=== PATIENT | female | born 1995 | race Caucasian/White ===

== ENCOUNTER → 2023-06-12 10:18 | Outpatient (REF) | payer OTHER, SELFPAY | LOC: PNTC 10:18 | PROVIDERS: ATTENDING PHYSICIAN Obstetrics & Gynecology | DX: O99.210 Obesity complicating pregnancy, unspecified trimester (principal) | CPT/HCPCS: 76805 ==

== ENCOUNTER → 2023-07-22 10:21 | Outpatient (REF) | payer OTHER, SELFPAY | LOC: PNTC 10:21 | PROVIDERS: ATTENDING PHYSICIAN Obstetrics & Gynecology | DX: O99.210 Obesity complicating pregnancy, unspecified trimester (principal) | CPT/HCPCS: 76811 ==

== ENCOUNTER → 2023-08-20 09:43 | Outpatient (REF) | payer OTHER, SELFPAY | LOC: PNTC 09:43 | PROVIDERS: ATTENDING PHYSICIAN Obstetrics & Gynecology | DX: O99.210 Obesity complicating pregnancy, unspecified trimester (principal); O43.119 Circumvallate placenta, unspecified trimester | CPT/HCPCS: 76816 ==

== ENCOUNTER → 2023-09-17 09:50 | Outpatient (REF) | payer OTHER, SELFPAY | LOC: PNTC 09:50 | PROVIDERS: ATTENDING PHYSICIAN Obstetrics & Gynecology | DX: O99.210 Obesity complicating pregnancy, unspecified trimester (principal); O43.119 Circumvallate placenta, unspecified trimester | CPT/HCPCS: 76816 ==

== ENCOUNTER → 2023-10-22 09:53 | Outpatient (REF) | payer OTHER, SELFPAY | LOC: PNTC 09:53 | PROVIDERS: ATTENDING PHYSICIAN Obstetrics & Gynecology | DX: O99.210 Obesity complicating pregnancy, unspecified trimester (principal); O43.119 Circumvallate placenta, unspecified trimester | CPT/HCPCS: 76816 ==

== ENCOUNTER → 2023-10-28 11:23 | Outpatient (REF) | payer OTHER, SELFPAY ==
--- NOTE | 2023-10-28 09:53 | PN.DIAED06 ---
Meal Plan - Gestational
- Breakfast
Gestational Diabetes Meal Plan Name: 1800 calories
Breakfast - Total Carbohydrate (grams): 30
Breakfast - Starch Carbohydrate: 1
Breakfast - Fruit Carbohydrate: 0
Breakfast - Milk Carbohydrate: 1
Breakfast - Nonstarchy Vegetables: Yes
Breakfast - Meat/Protein: 1
Breakfast - Fat: 2
- Morning Snack
Morning Snack - Total Carbohydrate (grams): 30
Morning Snack - Starch Carbohydrate: 1
Morning Snack - Fruit Carbohydrate: 0
Morning Snack - Milk Carbohydrate: 1
Morning Snack - Nonstarchy Vegetables: Yes
Morning Snack - Meat/Protein: 0.5
Morning Snack - Fat: 0
- Lunch
Lunch - Total Carbohydrate (grams): 45
Lunch - Starch Carbohydrate: 2
Lunch - Fruit Carbohydrate: 1
Lunch - Milk Carbohydrate: 0
Lunch - Nonstarchy Vegetables: Yes
Lunch - Meat/Protein: 2
Lunch - Fat: 1
- Afternoon Snack
Afternoon Snack - Total Carbohydrate (grams): 30
Afternoon Snack - Starch Carbohydrate: 1
Afternoon Snack - Fruit Carbohydrate: 1
Afternoon Snack - Milk Carbohydrate: 0
Afternoon Snack - Nonstarchy Vegetables: Yes
Afternoon Snack - Meat/Protein: 1
Afternoon Snack - Fat: 0
- Dinner
Dinner - Total Carbohydrate (grams): 45
Dinner - Starch Carbohydrate: 2
Dinner - Fruit Carbohydrate: 0
Dinner - Milk Carbohydrate: 1
Dinner - Nonstarchy Vegetables: Yes
Dinner - Meat/Protein: 2
Dinner - Fat: 2
- Evening Snack
Evening Snack - Total Carbohydrate (grams): 30
Evening Snack - Starch Carbohydrate: 1
Evening Snack - Fruit Carbohydrate: 0
Evening Snack - Milk Carbohydrate: 1
Evening Snack - Nonstarchy Vegetables: Yes
Evening Snack - Meat/Protein: 1
Evening Snack - Fat: 1
--- NOTE | 2023-10-28 12:26 | PN.DIAED02 ---
Referral
DSME Class Series Code: GDM
Referred For: Gestational Diabetes Self-Management Training, Self-Blood Glucose Monitoring
PHI Release Authorization Form Signed: Yes
Demographic
(1) Gestational diabetes mellitus in , unspecified control
Status: Acute
Qualifiers:
Gestational diabetes mellitus control: diet-controlled
Code(s): O24.419 - Gestational diabetes mellitus in , unspecified control
(2) Gestational diabetes mellitus in , unspecified control
Status: Acute Code(s): O24.419 - Gestational diabetes mellitus in , unspecified control
Self-Care
- Tobacco Usage
Do you now, or have you ever smoked?: Never smoked
- Alcohol & Drugs Usage
Drinks Alcohol: No
Uses Recreational Drugs: No
Care Plan
- Education Needs
Patient Education Needs: Nutritional management, Preconception care//gestational diabetes management
Recommended Diabetes Training Program based on assessment: Gestational Diabetes Management
- Plan of Care
Plan of Care:
Met with Ms. Salazar today, , currently at 34 weeks of gestation, here today for medical nutrition therapy.
Explained glucose metabolism in body and what occurs during to cause increase blood sugar. Discussed importance of keeping BS well controlled to avoid complications to the baby during and after (macrosomia, hypoglycemia). Explained
to Nayely that she is at increased risk of developing T2DM in the future. Nayely reports that she has a glucose monitor- [employer] Next at home and has been monitoring her blood sugars 2 hrs after each meal since dx of GDM. Reviewed proper testing
technique, testing sites and testing pattern. She is aware to test FBS and 2 hr pp each meal. Expected results for FBS <95 mg/dl and 2 hr pp <120 mg/dl.
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 Explained high carbohydrate diet and macronutrients and the effect each has on blood sugar. Provided with 1800 birdie GDM meal plan. She was educated on how to
read a nutritional fact label and look at total CHO in relation to serving size. No fruit or fruit juice until noontime. Provided with handout on snacks as well as 'Choose Your Foods' booklet. A Log sheet was provided for her to record results, she
will send her 5 day meal log with all her FBG and 2hr Post prandial glucose numbers to this office for review. In addition, she will send all her glucose readings to Siobhan at [facility] every Friday. She was encouraged to keep a regular
activity schedule and will reach out should she require insulin.
== END ==
LOC: DES 11:23
PROVIDERS: ATTENDING PHYSICIAN Obstetrics & Gynecology; FAMILY PHYSICIAN Family Medicine
DX: O24.419 Gestational diabetes mellitus in pregnancy, unspecified control (principal)
CPT/HCPCS: 99078

== ENCOUNTER 2023-11-20 07:22 | Inpatient (IN) | payer OTHER, SELFPAY ==
[2023-11-20 07:44] VITALS: BP 134/95; BMI 35.4
[2023-11-20] MEDS: LR 1000 IV (08:15)
[2023-11-20 08:35] LABS: % Basophils 0.2 % (0-2); % Eosinophils 1.2 % (0-6); % Immature Granulocytes 0.2 % (0-0.5); % Monocytes 7.1 % (1.7-9.3); % Neutrophils 73.3 % (42.2-75.2); Absolute Eosinophils 0.1 10^3/uL (0-0.7); Absolute Lymphocytes 1.5 10^3/uL (1.2-3.4); Absolute Monocytes 0.6 10^3/uL (0.1-0.6); Absolute Neutrophils 6.2 10^3/uL (1.4-6.5); Hematocrit 37.8 % (37.0-47.0); Hemoglobin 13.3 g/dL (12.0-16.0); Mean Corp Hgb Conc. 35.2 g/dL (33.0-37.0); Mean Corpuscular Hgb 30.4 pg (27.0-31.0); Mean Corpuscular Volume 86.3 fL (81.0-99.0); Mean Platelet Volume 10.6 fL (7.4-10.4); Nucleated Red Blood Cells % 0 %; Platelet Count 174 10^3/uL (130-400); Red Blood Cell Count 4.38 10^6/uL (4.20-5.40); Red Cell Dist. Width 13.2 % (11.5-14.5); White Blood Cell Count 8.5 10^3/uL (4.8-10.8)
[2023-11-20 09:36] LABS: Glucose - Point of Care 90 mg/dl (70-99)
[2023-11-20] MEDS: PITOCIN 30 UNITS/NSS 500 ML IV ×2 (09:45)
[2023-11-20] MEDS: SUBLIMAZE 100 MCG EPIDURAL (12:17)
[2023-11-20] MEDS: FENTANYL/BUPIVACAINE 100 EPIDURAL (12:18)
[2023-11-20] MEDS: MOTRIN 600 MG PO (20:00)
[2023-11-21] MEDS: TYLENOL 650 MG PO ×5 (00:54→20:47)
[2023-11-21] MEDS: MOTRIN 600 MG PO ×4 (02:05→20:47)
[2023-11-21 05:47] LABS: Hematocrit 30.6 % (37.0-47.0); Hemoglobin 10.7 g/dL (12.0-16.0)
[2023-11-21] MEDS: SENOKOT-S 1 TABLET PO (08:46)
[2023-11-21] MEDS: PRENATAL PLUS 1 TABLET PO (08:46)
[2023-11-21 15:57] LABS: Syphilis/T. pallidum Ab Reflex Negative (Negative)
[2023-11-22] MEDS: TYLENOL 650 MG PO (01:46)
[2023-11-22] MEDS: MOTRIN 600 MG PO (02:59)
[2023-11-22] MEDS: PRENATAL PLUS 1 TABLET PO (08:38)
[2023-11-22] MEDS: SENOKOT-S 1 TABLET PO (08:38)
== END 2023-11-22 15:14 | disposition home or self-care (01) | DRG 768 ==
LOC: LDRP 07:22
PROVIDERS: Obstetrics & Gynecology; ADMITTING PHYSICIAN Obstetrics & Gynecology; FAMILY PHYSICIAN Family Medicine
PROC: 0TQDXZZ Repair Urethra, External Approach (ICD-10-PCS; 2023-11-20)
PROC: 3E033VJ Introduction of Other Hormone into Peripheral Vein, Percutaneous Approach (ICD-10-PCS; 2023-11-20)
PROC: 10907ZC Drainage of Amniotic Fluid, Therapeutic from Products of Conception, Via Natural or Artificial Opening (ICD-10-PCS; 2023-11-20)
PROC: 0KQM0ZZ Repair Perineum Muscle, Open Approach (ICD-10-PCS; 2023-11-20)
PROC: 6A550ZT Pheresis of Cord Blood Stem Cells, Single (ICD-10-PCS; 2023-11-20)
PROC: 10E0XZZ Delivery of Products of Conception, External Approach (ICD-10-PCS; 2023-11-20)
DX: O24.420 Gestational diabetes mellitus in childbirth, diet controlled (principal); Z37.0 Single live birth; O71.5 Other obstetric injury to pelvic organs; Z3A.39 39 weeks gestation of pregnancy; O70.1 Second degree perineal laceration during delivery; O69.2XX0 Labor and delivery complicated by other cord entanglement, with compression, not applicable or unspecified; Z88.1 Allergy status to other antibiotic agents; Z88.0 Allergy status to penicillin; O99.214 Obesity complicating childbirth; O43.113 Circumvallate placenta, third trimester; Z83.3 Family history of diabetes mellitus; Z82.49 Family history of ischemic heart disease and other diseases of the circulatory system
CPT/HCPCS: 88307; 36415; 82962; 85014; 85018; 85025; 86780; 86850; 86900; 86901